=== PATIENT | male | born 1985 | race Hispanic/Latino ===

== ENCOUNTER 2020-03-08 16:12 | Emergency (ER) | payer SELFPAY ==
[2020-03-08] MEDS ORDERED: ACETAMINOPHEN 500 MG TAB ONE (19:19)
--- NOTE | 2020-03-08 20:30 | EDPHYS ---
Physician Documentation [facility] Name: Marc Baeza Age: 35 yrs Sex: Male : 1985 Arrival Date: 03/08/2020 Time: 16:17 Bed 5 Private MD: ED Physician Errol Sarabia HPI: 03/08 18:33 This 35 yrs old Male presents to ER via Ambulatory with complaints of Fever, pm1 Sore Throat. 18:33 The patient reports fever, that was measured at 100 degrees Fahrenheit. pm1 18:33 Onset: The symptoms/episode began/occurred 2 day(s) ago. Modifying factors: there are pm1 no obvious modifying factors. Associated signs and symptoms: Pertinent positives: cough, sore throat. Severity of symptoms: in the emergency department the symptoms are unchanged. The patient has not recently seen a physician. Historical: - Allergies: 16:52 No Known Allergies; ll1 - PMHx: 19:57 None; rr5 - PSHx: 16:52 None; ll1 - Immunization history:: Adult Immunizations up to date. - Social history:: Smoking status: Patient denies any tobacco usage or history of. Patient/guardian denies using alcohol, street drugs, tobacco products. ROS: 18:33 Eyes: Negative for injury, pain, redness, and discharge. pm1 18:33 Neck: Negative for injury, pain, and swelling, Cardiovascular: Negative for chest pain, palpitations, and edema, Respiratory: Negative for shortness of breath, cough, wheezing, and pleuritic chest pain, Abdomen/GI: Negative for abdominal pain, nausea, vomiting, diarrhea, and constipation, Back: Negative for injury and pain, MS/Extremity: Negative for injury and deformity, Skin: Negative for injury, rash, and discoloration, Neuro: Negative for headache, weakness, numbness, tingling, and seizure. 18:33 Constitutional: Positive for fever, Negative for poor PO intake. 18:33 ENT: Positive for sore throat, Negative for ear pain, difficulty swallowing, difficulty handling secretions, hoarseness. Exam: 18:33 Constitutional: This is a well developed, well nourished patient who is awake, alert, pm1 and in no acute distress. Head/Face: Normocephalic, atraumatic. Eyes: Pupils equal round and reactive to light, extra-ocular motions intact. Lids and lashes normal. Conjunctiva and sclera are non-icteric and not injected. Cornea within normal limits. Periorbital areas with no swelling, redness, or edema. 18:33 Neck: Trachea midline, no thyromegaly or masses palpated, and no cervical lymphadenopathy. Supple, full range of motion without nuchal rigidity, or vertebral point tenderness. No Meningismus. Chest/axilla: Normal chest wall appearance and motion. Nontender with no deformity. No lesions are appreciated. Cardiovascular: Regular rate and rhythm with a normal S1 and S2. No gallops, murmurs, or rubs. Normal PMI, no JVD. No pulse deficits. Respiratory: Lungs have equal breath sounds bilaterally, clear to auscultation and percussion. No rales, rhonchi or wheezes noted. No increased work of breathing, no retractions or nasal flaring. Abdomen/GI: Soft, non-tender, with normal bowel sounds. No distension or tympany. No guarding or rebound. No evidence of tenderness throughout. Back: No spinal tenderness. No costovertebral tenderness. Full range of motion. Skin: Warm, dry with normal turgor. Normal color with no rashes, no lesions, and no evidence of cellulitis. MS/ Extremity: Pulses equal, no cyanosis. Neurovascular intact. Full, normal range of motion. 18:33 ENT: External ear(s): are unremarkable, Ear canal(s): are normal, TM's: are normal, Nose: is normal, Posterior pharynx: is normal, airway is patent, Tonsils: bilaterally enlarged, with erythema, no exudate, no ulcerations, peritonsillar mass, is not appreciated, pooling of secretions, is not appreciated. 18:33 Neuro: Orientation: is normal, Mentation: is normal, Motor: is normal, moves all fours. Vital Signs: 16:50 BP 128 / 95; Pulse 95; Resp 17; Temp 100.0; Pulse Ox 95% ; Pain 4/10; ll1 19:30 BP 128 / 94; Pulse 90; Resp 16; Temp 100.2; Pulse Ox 99% ; rr5 21:00 BP 115 / 70; Pulse 85; Resp 15; Temp 98.8; Pulse Ox 99% on R/A; rr5 MDM: 18:22 Patient medically screened. [facility] 20:28 Data reviewed: vital signs. Data interpreted: Pulse oximetry: on room air is 99 %. pm1 Interpretation: normal. Counseling: I had a detailed discussion with the patient and/or guardian regarding: the historical points, exam findings, and any diagnostic results supporting the discharge/admit diagnosis, lab results, the need for outpatient follow up, to return to the emergency department if symptoms worsen or persist or if there are any questions or concerns that arise at home. 03/08 18:33 Order name: COVID-19 pm1 03/08 18:33 Order name: Flu; Complete Time: 20:28 pm1 03/08 18:33 Order name: Strep; Complete Time: 20:28 pm1 03/08 19:55 Order name: Throat Culture [facility] 03/08 18:33 Order name: Droplet/Contact Precautions; Complete Time: 19:48 pm1 03/08 18:33 Order name: Labs collected and sent; Complete Time: 19:48 pm1 03/08 18:33 Order name: O2 Per Protocol; Complete Time: 19:48 pm1 Administered Medications: 19:25 Drug: Tylenol 1000 mg Route: PO; rr5 20:40 Follow up: Response: No adverse reaction; Temperature is decreased rr5 Disposition: 03/09 05:51 Co-signature as Attending Physician, Errol Sarabia MD I agree with the assessment and [facility] plan of care. Disposition: 03/08/20 20:29 Discharged to Home. Impression: Acute upper respiratory infection, unspecified. - Condition is Stable. - Discharge Instructions: Upper Respiratory Infection, Adult. - Prescriptions for Tessalon Perles 100 mg Oral Capsule - take 1 capsule by ORAL route every 8 hours As needed; 15 capsule. - Medication Reconciliation Form, Thank You Letter, Antibiotic Education, Prescription Opioid Use form. - Follow up: Emergency Department; When: As needed; Reason: Worsening of condition. Follow up: Private Physician; When: 2 - 3 days; Reason: Recheck today's complaints, Continuance of care, Re-evaluation by your physician. - Problem is new. - Symptoms have improved. Signatures: Dispatcher [employer] Errol Kapadia MD MD cha Marinas, Patrick, YANETH CROSSCUTTER [employer] pm1 Quoc Stoll RN RN rr5 Omid, Lynsay, RN RN ll1 Corrections: (The following items were deleted from the chart) 03/08 20:30 20:29 03/08/2020 20:29 Discharged to Home. Impression: Acute pharyngitis. Condition is pm1 Stable. Forms are Medication Reconciliation Form, Thank You Letter, Antibiotic Education, Prescription Opioid Use. Follow up: Emergency Department; When: As needed; Reason: Worsening of condition. Follow up: Private Physician; When: 2 - 3 days; Reason: Recheck today's complaints, Continuance of care, Re-evaluation by your physician. Problem is new. Symptoms have improved. pm1 21:21 20:30 03/08/2020 20:29 Discharged to Home. Impression: Acute upper respiratory rr5 infection, unspecified. Condition is Stable. Discharge Instructions: Upper Respiratory Infection, Adult. Forms are Medication Reconciliation Form, Thank You Letter, Antibiotic Education, Prescription Opioid Use. Follow up: Emergency Department; When: As needed; Reason: Worsening of condition. Follow up: Private Physician; When: 2 - 3 days; Reason: Recheck today's complaints, Continuance of care, Re-evaluation by your physician. Problem is new. Symptoms have improved. pm1
--- NOTE | 2020-03-08 20:30 | ER ---
Nurse's Notes [facility] [place], [place] Name: Marc Baeza Age: 35 yrs Sex: Male : 1985 Arrival Date: 03/08/2020 Time: 16:17 Bed 5 Private MD: Diagnosis: Acute upper respiratory infection, unspecified Presentation: 03/08 16:50 Chief complaint: Patient states: Fever and sore throat for 2 days. + cough. Chief ll1 complaint:. Coronavirus screen: Surgical mask placed on patient. Patient moved to private room, placed in contact and droplet isolation with eye protection until further assessment. Patient reports a cough. Patient denies shortness of breath or difficulty breathing. Patient reports a measured and/or subjective temperature greater than 100.4F. Patient denies travel on a cruise ship or to a country the [facility] currently lists as an affected area. Patient denies contact with known and/or suspected case of COVID-19. Ebola Screen: Patient denies travel to an Ebola-affected area in the 21 days before illness onset. Initial Sepsis Screen: Does the patient meet any 2 criteria? No. Patient's initial sepsis screen is negative. Risk Assessment: Do you want to hurt yourself or someone else? Patient reports no desire to harm self or others. Onset of symptoms was March 07, 2020. 16:50 Method Of Arrival: Ambulatory ll1 16:50 Acuity: CLAUDIA 3 ll1 19:55 Initial Sepsis Screen: Does the patient have a suspected source of infection? No. rr5 Patient's initial sepsis screen is negative. Historical: - Allergies: 16:52 No Known Allergies; ll1 - PMHx: 19:57 None; rr5 - PSHx: 16:52 None; ll1 - Immunization history:: Adult Immunizations up to date. - Social history:: Smoking status: Patient denies any tobacco usage or history of. Patient/guardian denies using alcohol, street drugs, tobacco products. Screenin:00 Abuse screen: Denies threats or abuse. Denies injuries from another. Nutritional rr5 screening: No deficits noted. Tuberculosis screening: No symptoms or risk factors identified. Fall Risk None identified. Total Kumar Fall Scale indicates No Risk (0-24 pts). Assessment: 19:20 General: Appears in no apparent distress. comfortable, Behavior is calm, cooperative, rr5 appropriate for age, Reports fever for 1-2 days. Pain: Complains of pain in throat Pain does not radiate. Pain currently is 4 out of 10 on a pain scale. Quality of pain is described as aching, Pain began gradually, Is intermittent. Neuro: Level of Consciousness is awake, alert, obeys commands, Oriented to person, place, time, situation, Appropriate for age. Cardiovascular: Capillary refill < 3 seconds Patient's skin is warm and dry. Respiratory: Airway is patent Respiratory effort is even, unlabored, Respiratory pattern is regular, symmetrical. GI: No signs and/or symptoms were reported involving the gastrointestinal system. : No signs and/or symptoms were reported regarding the genitourinary system. EENT: Throat with gag reflex present, Reports pain in throat when swallowing. 19:20 Derm: Skin is intact, is healthy with good turgor, Skin is pink, warm \T\ dry. rr5 Musculoskeletal: Circulation, motion, and sensation intact. Capillary refill < 3 seconds. 19:20 Respiratory: Breath sounds are clear bilaterally. rr5 20:30 Reassessment: Patient appears in no apparent distress at this time. Patient is alert, rr5 oriented x 3, equal unlabored respirations, skin warm/dry/pink. for discharge awaiting for provider reassessment. 21:19 Reassessment: Patient appears in no apparent distress at this time. Patient is alert, rr5 oriented x 3, equal unlabored respirations, skin warm/dry/pink. discharge instruction given and explained without complaints made. Vital Signs: 16:50 BP 128 / 95; Pulse 95; Resp 17; Temp 100.0; Pulse Ox 95% ; Pain 4/10; ll1 19:30 BP 128 / 94; Pulse 90; Resp 16; Temp 100.2; Pulse Ox 99% ; rr5 21:00 BP 115 / 70; Pulse 85; Resp 15; Temp 98.8; Pulse Ox 99% on R/A; rr5 ED Course: 16:17 Patient arrived in ED. mr 16:51 Triage completed. ll1 16:52 Arm band placed on Patient notified of wait time. ll1 18:22 Hussain Fernandez NP is PHCP. pm1 18:22 Errol Sarabia MD is Attending Physician. pm1 19:05 Patient has correct armband on for positive identification. Bed in low position. Call rr5 light in reach. Pulse ox on. NIBP on. 19:07 Quoc Stoll, RN is Primary Nurse. rr5 19:25 Flu and/or RSV swab sent to lab. Strep swab sent to lab. covid 19. rr5 19:57 No provider procedures requiring assistance completed. Patient did not have IV access rr5 during this emergency room visit. Administered Medications: 19:25 Drug: Tylenol 1000 mg Route: PO; rr5 20:40 Follow up: Response: No adverse reaction; Temperature is decreased rr5 Outcome: 20:29 Discharge ordered by MD. pm1 21:20 Discharged to home ambulatory. rr5 21:20 Condition: stable 21:20 Discharge instructions given to patient, Instructed on discharge instructions, follow up and referral plans. medication usage, Demonstrated understanding of instructions, follow-up care, medications, Prescriptions given X 1. 21:21 Patient left the ED. rr5 Addendum: 03/12/2020 07:15 Addendum: COVID-19 Result: Positive result giiven to ED physician to notify pt. s s Physician attempted to contact pt. Physician left voice mail for pt to call the ED back. Signatures: Ada Molina mr Ale Kaba RN RN ss Hussain Fernandez, BURR SANDER BURR SANDER pm1 Quoc Stoll, RN RN rr5 Kuldip Anne RN RN ll1
[2020-03-08 21:53] VITALS: O2SAT 99
[2020-03-08 21:54] VITALS: BP 115/70; TEMP 98.8
== END 2020-03-08 21:21 | disposition home or self-care (01) ==
LOC: ER 16:12
DX: U07.1 COVID-19 (principal); J98.8 Other specified respiratory disorders
CPT/HCPCS: 87070; 87081; 87804; 99284; U0001